=== PATIENT | female | born 1980 | race American Indian/Alaskan Native ===

== ENCOUNTER 2017-10-07 16:10 | Observation (INO) | payer MEDICAID ==
--- NOTE | 2017-10-07 19:21 | Ultrasound Report ---
FINAL REPORT PROCEDURE: US OB LIMITED TECHNIQUE: Real-time limited sonographic examination was performed for evaluation of size, position, heartbeat, fluid volume for each fetus with image documentation (1 or more fetuses). CPT 57732 HISTORY: well being. DAWIT. COMPARISON: No prior studies are available for comparison. FINDINGS: Per technologist report clinical age 38 weeks. FETUS IUP: Single living intrauterine . Position: Cephalic. Placental position: Fundal grade 3, no previa. Amniotic fluid volume: 4.99 cm Heart rate and rhythm: 168 beats per minute BPM, Regular . anatomic survey: Normal . IMPRESSION: Limited obstetrical ultrasound for AF 5. AF RI is 4.99 cm, oligohydramnios.
--- NOTE | 2017-10-07 19:24 | Ultrasound Report ---
FINAL REPORT PROCEDURE: US OB BPP WO NON-STRESS TECHNIQUE: Sonographic evaluation for breathing, movement, tone, and amniotic fluid volume was performed. CPT 04487 HISTORY: well being. COMPARISON: No prior studies are available for comparison. FINDINGS: Per technologist note clinical age 38 weeks. heart rate 160 beats per minute. Amniotic fluid volume: 0, largest pocket less than 2 cm in vertical axis. breathing: Normal-score 2. movement: Normal-score 2. tone: Normal. Score: 8 of 8. IMPRESSION: Biophysical profile score 6-8. Amniotic fluid volume score 0, largest pocket less than 2 cm in vertical axis. Concern for oligohydramnios.
[2017-10-07] MEDS ORDERED: COLACE PO PRN (19:42)
[2017-10-07] MEDS ORDERED: TYLENOL PO PRN (19:42)
--- NOTE | 2017-10-07 19:47 | Short Stay Summary ---
Short Stay Documentation Date of service: 10/07/17 Narrative H&P: Pt is a 37yo BF EDC 10/20/17; EGA 38 1/7 weeks presents from the office for evaluation of decreased movement. She received care at [facility] since 13 weeks and course has been unremarkable. Her BPP was 8/8 and DAWIT 5.0 Pt wants to go home, however I convinced her to stay for IV hydration and repeat DAWIT in the morning. - History Principal diagnosis: IUP @ 38 1/7 weeks; Oligohydramnios H&P: obtained from office Past Medical History: No medical history Past Surgical History: No surgical history Social history: no significant social history, single - Allergies and Medications Current Medications: Allergies No Known Allergies Allergy (Unverified 10/07/17 17:06) - Physical exam General appearance: no acute distress Integumentary: no rash HEENT: Atraumatic Lungs: Clear to auscultation Breasts: deferred Heart: Regular rate Gastrointestinal: normal Female Genitourinary: deferred Rectal Exam: deferred Extremities: no ischemia Neurological: Normal gait, Normal speech Short Stay Discharge Plan Follow up with: LAUREN GUAJARDO MD [Primary Care Provider] - 7 Days
[2017-10-07 21:15] LABS: Basophils # (Auto) 0.1 K/mm3 (0.0-0.1); Basophils % (Auto) 1.2 % (0.0-1.8); Eosinophils # (Auto) 0.1 K/mm3 (0.0-0.4); Eosinophils % (Auto) 1.1 % (0.0-4.3); Hematocrit 32.7 % (30.3-42.9); Hemoglobin 11.2 gm/dl (10.1-14.3); Lymphocytes # (Auto) 2.5 K/mm3 (1.2-5.4); Lymphocytes % (Auto) 28.2 % (13.4-35.0); Mean Corpuscular HGB Conc 34 % (30-34); Mean Corpuscular Hemoglobin 32 pg (28-32); Mean Corpuscular Volume 93 fl (79-97); Monocytes # (Auto) 0.7 K/mm3 (0.0-0.8); Monocytes % (Auto) 7.9 % (0.0-7.3); Platelet Count 380 K/mm3 (140-440); Red Blood Count 3.52 M/mm3 (3.65-5.03); Red Cell Distribution Width 15.1 % (13.2-15.2)
[2017-10-07] MEDS: LACTATED RINGERS 1,000 ML IV SCH (21:18)
[2017-10-07] MEDS ORDERED: AMBIEN PO PRN (22:00)
[2017-10-08] MEDS: LACTATED RINGERS 1,000 ML IV SCH (04:45)
[2017-10-08 07:53] VITALS: BP 130/81
--- NOTE | 2017-10-08 09:57 | Ultrasound Report ---
OB LIMITED INDICATION: DAWIT. COMPARISON: Yesterday. TECHNIQUE: Transabdominal grayscale ultrasound with Doppler interrogation. Gestation: Young Position: Cephalic Amniotic Fluid: Decreased (< 7 cm) DAWIT = 5.9 cm Heart Rate: 153 BPM CONCLUSION: Findings, as above.
[2017-10-08] MEDS ORDERED: VALTREX PO SCH (10:00)
[2017-10-08] MEDS ORDERED: PRENATAL VITAMIN PO SCH (10:00)
== END 2017-10-08 09:49 | disposition home or self-care (01) ==
LOC: TRG 16:10 → LD 20:04
PROVIDERS: ADMIT Obstetrics & Gynecology; ATTEND Obstetrics & Gynecology
DX: O36.8130 Decreased fetal movements, third trimester, not applicable or unspecified (principal); O41.03X0 Oligohydramnios, third trimester, not applicable or unspecified; Z3A.38 38 weeks gestation of pregnancy
CPT/HCPCS: 36415; 59025; 76815; 76819; 85025; 96360; 96361; G0378; J7120

== ENCOUNTER 2017-10-27 15:39 | Inpatient (IN) | payer MEDICAID ==
[2017-10-27] MEDS ORDERED: NORMODYNE IV ONE (16:51)
[2017-10-27] MEDS ORDERED: TYLENOL PO ONE (17:07)
[2017-10-27] MEDS ORDERED: MOTRIN PO ONE (17:07)
--- NOTE | 2017-10-27 17:07 | Emergency Department Report ---
ED General Adult HPI - General Chief complaint: High BP Stated complaint: MY SENT ME FOR MY BP AND SWELLING Time Seen by Provider: 10/27/17 16:45 Source: patient Mode of arrival: Ambulatory Limitations: No Limitations - History of Present Illness Initial comments: At a vaginal delivery on 10/11/2017. For the past week, patient has been having persistent headaches and bilateral leg swelling. She went in earlier today to be evaluated by her OB. They noticed that her blood pressure was high. So, she was sent to the ER for evaluation. Patient states that her postdelivery vaginal bleeding slowly improving. Appetite is normal. She is breast-feeding. No urinary or abdominal pain. This was her fourth . No prior problems with the 3 prior births. - Related Data Home Medications Medication Instructions Recorded Confirmed Last Taken valACYclovir [Valtrex] 500 mg PO DAILY 10/07/17 10/09/17 10/09/17 11:00 Previous Rx's Medication Instructions Recorded Last Taken Type Ferrous Sulfate [Feosol 325 MG tab] 325 mg PO BID #60 tablet 10/12/17 Unknown Rx Ibuprofen [Motrin 600 MG tab] 600 mg PO Q6H #30 tablet 10/12/17 Unknown Rx Vit-Fe Fumar-FA [ 1 each PO QDAY #30 tablet 10/12/17 Unknown Rx Vitamin] Allergies Allergy/AdvReac Type Severity Reaction Status Date / Time No Known Allergies Allergy Unverified 10/07/17 17:06 ED Review of Systems ROS: Stated complaint: MY SENT ME FOR MY BP AND SWELLING Other details as noted in HPI Comment: All other systems reviewed and negative Cardiovascular: edema Genitourinary: other (vaginal bleeding) Neurological: headache ED Past Medical Hx - Past Medical History Previous Medical History?: Yes Hx Hypertension: No Hx Congestive Heart Failure: No Hx Diabetes: No Hx Deep Vein Thrombosis: No Hx Renal Disease: No Hx Sickle Cell Disease: No Hx Seizures: No Hx Asthma: No Hx COPD: No Hx HIV: No Additional medical history: Vaginal delivery x 4, Recent childbirth 10-11-2017 - Surgical History Past Surgical History?: No - Social History Smoking Status: Current Every Day Smoker Substance Use Type: Prescribed - Medications Home Medications: Home Medications Medication Instructions Recorded Confirmed Last Taken Type valACYclovir [Valtrex] 500 mg PO DAILY 10/07/17 10/09/17 10/09/17 11:00 History Ferrous Sulfate [Feosol 325 MG tab] 325 mg PO BID #60 tablet 10/12/17 Unknown Rx Ibuprofen [Motrin 600 MG tab] 600 mg PO Q6H #30 tablet 10/12/17 Unknown Rx Vit-Fe Fumar-FA [ 1 each PO QDAY #30 tablet 10/12/17 Unknown Rx Vitamin] ED Physical Exam - General Limitations: No Limitations General appearance: alert, in no apparent distress - Head Head exam: Present: atraumatic, normocephalic - Eye Eye exam: Present: normal appearance - ENT ENT exam: Present: mucous membranes moist - Neck Neck exam: Present: normal inspection - Respiratory Respiratory exam: Present: normal lung sounds bilaterally. Absent: respiratory distress - Cardiovascular Cardiovascular Exam: Present: regular rate, normal rhythm. Absent: systolic murmur, diastolic murmur, rubs, gallop - GI/Abdominal GI/Abdominal exam: Present: soft. Absent: tenderness - Extremities Exam Extremities exam: Present: normal inspection - Back Exam Back exam: Present: normal inspection - Neurological Exam Neurological exam: Present: alert, oriented X3, CN II-XII intact, normal gait. Absent: motor sensory deficit - Psychiatric Psychiatric exam: Present: normal affect, normal mood - Skin Skin exam: Present: warm, dry, intact, normal color. Absent: rash ED Course Vital Signs 10/27/17 10/27/17 10/27/17 15:45 18:01 19:20 Temperature 99.8 F H 98.1 F Pulse Rate 89 75 79 Respiratory 20 18 Rate Blood Pressure 180/105 168/110 Blood Pressure 125/70 [Left] O2 Sat by Pulse 100 99 Oximetry ED Medical Decision Making - Lab Data Result diagrams: 10/27/17 18:03 10/27/17 17:20 - Medical Decision Making with normal vaginal delivery on 10-11-17 that presents to the ER with elevated blood pressure, bilateral leg swelling, and headache. Patient has no focal deficit on exam. Systolic blood pressure 180s on presentation. Patient was given 20 mg IV labetalol which controlled her blood pressure on reevaluation. 3+ bilateral pitting edema on exam. Patient urinated but did not collect a sample. I am concerned for post- pre-eclampsia. I discussed the case with Dr. Rodriguez, who was willing to admit the patient without the urine. Lab work unremarkable. Patient will be admitted for further management. Critical care attestation.: If time is entered above; I have spent that time in minutes in the direct care of this critically ill patient, excluding procedure time. ED Disposition Clinical Impression: Pre-eclampsia complicating hypertension Disposition: OP ADMIT IP TO THIS HOSP Is pt being admited?: Yes Condition: Stable Instructions: Hypertension (ED)
[2017-10-27 17:46] LABS: Alanine Aminotransferase 16 units/L (7-56); Albumin 3.5 g/dL (3.9-5); BUN/Creatinine Ratio 13; Blood Urea Nitrogen 9 mg/dL (7-17); Calcium 8.3 mg/dL (8.4-10.2); Hemolysis Index 32
[2017-10-27 17:51] LABS: Bilirubin,Direct < 0.2 mg/dL (0-0.2)
[2017-10-27 18:28] LABS: Hematocrit 36.4 % (30.3-42.9); Mean Corpuscular HGB Conc 33 % (30-34); Mean Corpuscular Hemoglobin 31 pg (28-32); Mean Corpuscular Volume 93 fl (79-97); Platelet Count 471 K/mm3 (140-440); Red Blood Count 3.91 M/mm3 (3.65-5.03); Red Cell Distribution Width 14.7 % (13.2-15.2)
[2017-10-27] MEDS ORDERED: NACL 0.9% 1000 ML 1,000 ML IV ONE (18:38)
[2017-10-27 18:43] LABS: Eosinophils % (Auto) 1.9 % (0.0-4.3); Lymphocytes % (Auto) 43.5 % (13.4-35.0); Monocytes % (Auto) 7.3 % (0.0-7.3)
[2017-10-27 18:44] LABS: Basophils # (Auto) 0.1 K/mm3 (0.0-0.1); Basophils % (Auto) 0.8 % (0.0-1.8); Eosinophils # (Auto) 0.2 K/mm3 (0.0-0.4); Lymphocytes # (Auto) 3.8 K/mm3 (1.2-5.4); Monocytes # (Auto) 0.6 K/mm3 (0.0-0.8)
[2017-10-27 21:49] LABS: Bacteria,Urine 1+ /HPF (Negative); Bilirubin,Urine NEG (Negative); Blood,Urine LG (Negative); Color,Urine Yellow (Yellow); Mucus,Urine FEW /HPF; Protein,Urine <15 mg/dL mg/dL (Negative); Urobilinogen,Urine < 2.0 mg/dL (<2.0)
[2017-10-27] MEDS ORDERED: TYLENOL PO PRN (22:24)
[2017-10-27] MEDS ORDERED: COLACE PO PRN (22:24)
[2017-10-27] MEDS ORDERED: NORMODYNE IV PRN (22:35)
[2017-10-27] MEDS ORDERED: MAGNESIUM SULFATE 4GM/100ML 4 GM/100 ML BAG IV ONE (22:35)
[2017-10-27] MEDS ORDERED: MYLICON PO PRN (22:35)
[2017-10-27] MEDS ORDERED: ZOFRAN IV PRN (22:35)
--- NOTE | 2017-10-27 22:46 | History and Physical Report ---
History of Present Illness Date of examination: 10/27/17 Date of admission: 10/27/17 19:56 Chief complaint: Elevated BP's History of present illness: Pt is a 37yo BF s/p on 10/11/17 presented from the office for evaluation of suspected preeclampsia. She received care at [facility] since 13 weeks and course had been unremarkable. During and after vaginal delivery on 10/11/2017 her BP's remained stable, not requiring any antihypertensive meds. For the past week, she has been having persistent headaches and bilateral leg swelling. In the office today blood pressure was elevated, and thus she was sent to the ER for evaluation. Her vaginal bleeding has improved, her appetite is normal, and she is breast-feeding. She denies urinary or abdominal pain. Past History Past Medical History: no pertinent history Past Surgical History: no surgical history [employer] History: herpes Family/Genetic History: none Social history: no significant social history, single - Obstetrical History : 5 Medications and Allergies Allergies Allergy/AdvReac Type Severity Reaction Status Date / Time No Known Allergies Allergy Unverified 10/07/17 17:06 Home Medications Medication Instructions Recorded Confirmed Last Taken Type No Known Home Medications [No 10/27/17 10/27/17 Unknown History Reported Home Medications] Active Meds: Active Medications Acetaminophen (Tylenol) 650 mg PO Q4H PRN PRN Reason: Pain MILD(1-3)/Fever >100.5/PATTERSON Docusate Sodium (Colace) 100 mg PO Q12H PRN PRN Reason: Constipation Lactated Ringer's (Lactated Ringers) 1,000 mls @ 125 mls/hr IV DIRECT JOSE CARLOS Magnesium Sulfate (Magnesium Sulfate 40gm/1000ml) 40 gm in 1,000 mls @ 50 mls/ hr IV DIRECT JOSE CARLOS Magnesium Sulfate (Magnesium Sulfate 4gm/100ml) 4 gm in 100 mls @ 300 mls/hr IV ONCE ONE Stop: 10/27/17 22:54 Labetalol HCl (Normodyne) 10 mg IV ONCE PRN PRN Reason: Blood Pressure Multivitamins/Iron/Calcium ( Vitamin) 1 each PO QDAY JOSE CARLOS Ondansetron HCl (Zofran) 4 mg IV Q6H PRN PRN Reason: Nausea And Vomiting Simethicone (Mylicon) 80 mg PO Q6H PRN PRN Reason: Gas pain Review of Systems All systems: negative - Vital Signs Vital signs: Vital Signs Temp Pulse Resp BP Pulse Ox 99.8 F H 89 20 180/105 100 10/27/17 15:45 10/27/17 15:45 10/27/17 15:45 10/27/17 15:45 10/27/17 15:45 Temp Pulse Resp BP Pulse Ox 98.1 F 91 H 16 149/83 95 10/27/17 19:20 10/27/17 20:00 10/27/17 20:00 10/27/17 20:00 10/27/17 20:00 - Physical Exam Breasts: Positive: deferred Cardiovascular: Regular rate Lungs: Positive: Clear to auscultation Abdomen: Positive: normal appearance Uterus: Positive: enlarged Results Result Diagrams: 10/27/17 18:03 10/27/17 17:20 Abnormal lab results 10/27/17 10/27/17 10/27/17 Range/Units 17:20 18:03 21:27 Plt Count 471 H (140-440) K/mm3 Lymph % (Auto) 43.5 H (13.4-35.0) % Calcium 8.3 L (8.4-10.2) mg/dL Total Protein 6.0 L (6.3-8.2) g/dL Albumin 3.5 L (3.9-5) g/dL Urine WBC (Auto) 183.0 H (0.0-6.0) /HPF All other labs normal. Assessment and Plan - Patient Problems (1) Pre-eclampsia complicating hypertension Onset Date: 10/28/17 Current Visit: Yes Status: Resolved Plan to address problem: A: Post preeclampsia - Will begin IV Magnesium sulfate and IV Labetolol Headaches P: Will admit for BP management with IV Magnesium sulfate and IV Labetolol
[2017-10-27] MEDS ORDERED: MAGNESIUM SULFATE 40GM/1000ML 40 GM/1,000 ML BAG IV SCH (23:00)
[2017-10-27] MEDS ORDERED: LACTATED RINGERS 1,000 ML IV SCH (23:00)
[2017-10-28] MEDS: MOTRIN PO PRN ×2 (03:00→09:10)
[2017-10-28] MEDS ORDERED: PRENATAL VITAMIN PO SCH (10:00)
--- NOTE | 2017-10-28 11:38 | Progress Note ---
Assessment and Plan - Patient Problems (1) Pre-eclampsia complicating hypertension Onset Date: 10/28/17 Current Visit: Yes Status: Acute Plan to address problem: A: Post preeclampsia - BP's improved on IV Magnesium sulfate and IV Labetolol P: Will obtain a Head CT Scan Subjective - Subjective Date of service: 10/28/17 Principal diagnosis: preeclampsia Interval history: Pt is a 37yo BF s/p on 10/11/17 who presented from the office for evaluation of suspected preeclampsia. She received care at [facility] since 13 weeks and course had been unremarkable. During and after vaginal delivery on 10/11/2017 her BP's remained stable, not requiring any antihypertensive meds. For the past week, she has been having persistent headaches and bilateral leg swelling. In the office today blood pressure was elevated, and thus she was sent to the ER for evaluation. Her vaginal bleeding has improved, her appetite is normal, and she is breast-feeding. She denies urinary or abdominal pain. Today her BP's is improved on IV Magnesium sulfate and IV Labetolol, but the dull headache continues. Patient reports: appetite normal, pain well controlled Objective - Vital Signs Latest vital signs: Vital Signs Temp Pulse Resp Resp BP BP BP 10/28/17 10:10 97.9 F 77 18 135/75 135/75 10/28/17 07:59 97.6 F 76 18 146/83 10/28/17 06:41 18 18 10/28/17 06:30 97.7 F 77 18 144/81 10/28/17 04:30 98.1 F 71 18 117/57 10/28/17 03:00 18 18 10/28/17 02:34 97.8 F 79 18 143/80 10/28/17 00:05 98.8 F 80 18 136/72 10/28/17 00:01 98.8 F 82 18 126/76 10/27/17 23:50 98.6 F 82 18 135/68 10/27/17 23:45 98.8 F 78 18 133/74 10/27/17 21:42 98.6 F 79 18 139/83 10/27/17 21:00 79 15 153/87 10/27/17 20:51 78 15 143/77 10/27/17 20:41 72 16 132/92 10/27/17 20:30 84 15 132/92 10/27/17 20:23 87 15 145/76 10/27/17 20:00 91 H 16 149/83 10/27/17 19:20 98.1 F 79 18 125/70 10/27/17 18:01 75 168/110 10/27/17 15:45 99.8 F H 89 20 180/105 Pulse Ox 10/28/17 10:10 95 10/28/17 07:59 97 10/28/17 06:41 10/28/17 06:30 10/28/17 04:30 10/28/17 03:00 10/28/17 02:34 10/28/17 00:05 97 10/28/17 00:01 98 10/27/17 23:50 97 10/27/17 23:45 97 10/27/17 21:42 10/27/17 21:00 95 10/27/17 20:51 98 10/27/17 20:41 100 10/27/17 20:30 96 10/27/17 20:23 98 10/27/17 20:00 95 10/27/17 19:20 99 10/27/17 18:01 10/27/17 15:45 100 Intake and Output 10/27/17 10/28/17 10/28/17 22:59 06:59 14:59 Intake Total 560 600 Output Total 2100 1800 Balance -1540 -1200 Intake: Oral 560 600 Output: Urine 2100 1800 Indwelling Catheter 1500 1800 Uretheral (Conti) 600 Other: Total, Intake Amount 360 240 Total, Output Amount 900 1000 Weight 92 kg - Exam Cardiovascular: Present: Regular rate Lungs: Present: Clear to auscultation Abdomen: Present: normal appearance, soft - Labs Labs: Abnormal lab results 10/27/17 10/27/17 10/27/17 Range/Units 17:20 18:03 21:27 Plt Count 471 H (140-440) K/mm3 Lymph % (Auto) 43.5 H (13.4-35.0) % Calcium 8.3 L (8.4-10.2) mg/dL Magnesium (1.7-2.3) mg/dL Total Protein 6.0 L (6.3-8.2) g/dL Albumin 3.5 L (3.9-5) g/dL Urine WBC (Auto) 183.0 H (0.0-6.0) /HPF 10/28/17 Range/Units 06:07 Plt Count (140-440) K/mm3 Lymph % (Auto) (13.4-35.0) % Calcium (8.4-10.2) mg/dL Magnesium 4.80 H (1.7-2.3) mg/dL Total Protein (6.3-8.2) g/dL Albumin (3.9-5) g/dL Urine WBC (Auto) (0.0-6.0) /HPF
[2017-10-28] MEDS ORDERED: LANSINOH TP PRN ×2 (12:08→20:41)
--- NOTE | 2017-10-28 18:25 | Cat Scan Report ---
FINAL REPORT EXAM: CT HEAD/BRAIN WO CON HISTORY: Headaches TECHNIQUE: Noncontrast CT axial images of the brain. PRIORS: None. FINDINGS: No parenchymal mass, mass effect, hemorrhage, midline shift or hydrocephalus. No evidence of acute cortical infarct. No abnormal, extra-axial fluid or air collection. Osseous calvarium grossly intact. IMPRESSION: 1. No acute intracranial findings.
[2017-10-28] MEDS ORDERED: NORMODYNE IV ONE (20:37)
[2017-10-28] MEDS ORDERED: TYLENOL PO PRN (20:38)
[2017-10-28] MEDS ORDERED: MYLICON PO PRN (20:41)
[2017-10-28] MEDS ORDERED: ZOFRAN IV PRN (20:43)
[2017-10-28] MEDS ORDERED: LACTATED RINGERS 1,000 ML IV SCH (21:00)
[2017-10-28] MEDS: PERCOCET 5/325 PO PRN (21:14)
[2017-10-29] MEDS: PERCOCET 5/325 PO PRN (09:23)
[2017-10-29] MEDS ORDERED: PRENATAL VITAMIN PO SCH (10:00)
--- NOTE | 2017-10-29 10:46 | Progress Note ---
Assessment and Plan - Patient Problems (1) Pre-eclampsia complicating hypertension Onset Date: 10/28/17 Current Visit: Yes Status: Resolved Plan to address problem: A: Post preeclampsia - BP's improved on IV Magnesium sulfate and IV/PO Labetolol Headaches -resolved P: May go home today on PO Labetolol Follow up in the office in 1 week for BP check. Subjective - Subjective Date of service: 10/29/17 Principal diagnosis: preeclampsia Interval history: Pt is a 37yo BF s/p on 10/11/17 who presented from the office for evaluation of suspected preeclampsia. She received care at [facility] since 13 weeks and course had been unremarkable. During and after vaginal delivery on 10/11/2017 her BP's remained stable, not requiring any antihypertensive meds. For the past week, she has been having persistent headaches and bilateral leg swelling. In the office her blood pressure was elevated, and thus she was sent to the ER for evaluation. Her vaginal bleeding has improved, her appetite is normal, and she is breast-feeding. She denies urinary or abdominal pain. Today her BP's is improved on IV Labetolol, and the headache has resolved. Her Head CT Scan was negative. Patient reports: appetite normal, voiding normally, pain well controlled, ambulating normally, no dizzy ambulation, no nauseated Objective - Vital Signs Latest vital signs: Vital Signs Temp Pulse Resp BP Pulse Ox 10/29/17 09:47 98.4 F 79 16 147/89 94 10/29/17 08:14 98.4 F 79 16 124/71 98 10/29/17 05:41 98.0 F 80 20 128/74 98 10/29/17 00:40 98.8 F 71 20 135/83 95 10/28/17 22:39 98.5 F 78 20 120/74 95 10/28/17 21:16 98.8 F 76 20 147/82 95 10/28/17 18:14 97.7 F 72 18 147/90 100 10/28/17 16:17 98.2 F 74 18 135/81 99 10/28/17 14:35 98.3 F 73 18 152/92 96 10/28/17 12:40 97.8 F 67 18 157/88 96 Intake and Output 10/28/17 10/29/1718 22:59 06:59 14:59 Intake Total 1080 720 240 Output Total 3400 1600 Balance -5660 -880 240 Intake: Oral 1080 720 240 Output: Urine 3400 1600 Indwelling Catheter 3400 600 Void 1000 Other: Total, Intake Amount 240 360 240 Total, Output Amount 1300 1000 # Voids Void 1 Weight 92 kg - Exam Breasts: Present: deferred Cardiovascular: Present: Regular rate Lungs: Present: Clear to auscultation Abdomen: Present: normal appearance
[2017-10-29] MEDS ORDERED: NORMODYNE PO SCH (11:00)
--- NOTE | 2017-10-29 11:15 | Discharge Summary ---
Providers - Providers Date of Admission: 10/27/17 19:56 Date of discharge: 10/29/17 Attending physician: LAUREN GUAJARDO Primary care physician: LAUREN GUAJARDO Hospitalization Reason for admission: other (Post preeclampsia) Other procedures: none complications: other (elevated BP's) Discharge diagnosis: other ( preeclampsia) Pertinent studies: Head CT Scan - Negative Hospital course: Pt is a 37yo BF s/p on 10/11/17 who presented from the office for evaluation of suspected preeclampsia. She received care at [facility] since 13 weeks and course had been unremarkable. During and after vaginal delivery on 10/11/2017 her BP's remained stable, not requiring any antihypertensive meds. For the past week, she has been having persistent headaches and bilateral leg swelling. In the office her blood pressure was elevated, and thus she was sent to the ER for evaluation. Her vaginal bleeding has improved, her appetite is normal, and she is breast-feeding. She denied urinary or abdominal pain. A Head CT Scan was normal, and her BP's improved with IV Magnesium sulfate and IV Labetolol. She was therefore discharged to home on PO Labetolol, and will be followed up in the office in 1 week for BP check. Condition at discharge: Good Disposition: DC-01 TO HOME OR SELFCARE - Discharge Diagnoses (1) Pre-eclampsia complicating hypertension Status: Resolved Plan - Discharge Medications Prescriptions: Labetalol [Normodyne TAB] 100 mg PO BID #60 tablet - Provider Discharge Summary Activity: routine, no sex for 6 weeks, no heavy lifting 4 weeks, no strenuous exercise Diet: routine Instructions: routine Additional instructions: [] Smoking cessation referral if applicable(refer to patient education folder for contact #) [] Refer to [facility] Booklet Call your doctor immediately for: * Fever > 100.5 * Heavy vaginal bleeding ( >1 pad per hour) * Severe persistent headache * Shortness of breath * Reddened, hot, painful area to leg or breast * Drainage or odor from incision. * Keep incision clean and dry at all times and follow doctor's instructions regarding bathing/showering - Follow up plan Follow up: LAUREN GUAJARDO MD [Primary Care Provider] - 3-5 Days Forms: [facility] Discharge Summary
[2017-10-29 12:07] VITALS: BP 157/83
== END 2017-10-29 12:50 | disposition home or self-care (01) | DRG 776 ==
LOC: ED 15:39 → OB 19:56 → UNDODISIN 10-28 15:00
PROVIDERS: ADMIT Obstetrics & Gynecology; ATTEND Obstetrics & Gynecology
DX: O14.95 Unspecified pre-eclampsia, complicating the puerperium (principal); F17.200 Nicotine dependence, unspecified, uncomplicated; O99.335 Smoking (tobacco) complicating the puerperium
CPT/HCPCS: 36415; 70450; 80048; 80074; 81001; 83735; 85025; 96361; 96374; 99211; A6250; G0463; J3475; J7030; J7120